=== PATIENT | male | born 1975 | race Caucasian/White ===

== ENCOUNTER 2019-09-20 01:43 | Emergency (ER) | payer SELFPAY ==
[~2019-09-20] VITALS: Ht 185.4 cm; Wt 90.7 kg
== END 2019-09-20 03:57 | disposition home or self-care (01) ==
LOC: ER 01:43
DX: S71.112A Laceration without foreign body, left thigh, initial encounter (principal); W26.8XXA Contact with other sharp object(s), not elsewhere classified, initial encounter; F17.200 Nicotine dependence, unspecified, uncomplicated

== ENCOUNTER 2019-11-23 07:10 | Emergency (ER) | payer OTHER ==
[~2019-11-23] VITALS: Ht 185.4 cm; Wt 90.7 kg
[2019-11-23] MEDS ORDERED: BACTRIM DS TAB1 EACH PO (07:24)
== END 2019-11-23 07:37 | disposition home or self-care (01) ==
LOC: ER 07:10
DX: L02.31 Cutaneous abscess of buttock (principal); L03.317 Cellulitis of buttock; F17.210 Nicotine dependence, cigarettes, uncomplicated
CPT/HCPCS: 99283; A9270-GY

== ENCOUNTER 2019-11-24 09:29 | Emergency (ER) | payer OTHER ==
[~2019-11-24] VITALS: Ht 185.4 cm; Wt 90.7 kg
[~2019-11-24 09:29] MED LIST: BACTRIM DS TAB1 EACH PO
== END 2019-11-24 11:20 | disposition home or self-care (01) ==
LOC: ER 09:29
DX: S29.012A Strain of muscle and tendon of back wall of thorax, initial encounter (principal); F17.200 Nicotine dependence, unspecified, uncomplicated; V59.9XXA Occupant (driver) (passenger) of pick-up truck or van injured in unspecified traffic accident, initial encounter
CPT/HCPCS: 72070; 99284-25; A9270

== ENCOUNTER 2019-12-23 16:12 | Emergency (ER) | payer OTHER ==
[~2019-12-23] VITALS: Ht 185.4 cm; Wt 90.7 kg
[2019-12-23 17:18] LABS: BASOPHILS ABSOLUTE AUTO 0.05 K/mm3 (0.00-0.23); BASOPHILS PERCENT AUTO 0 % (0-2); EOSINOPHILS ABSOLUTE AUTO 0.02 K/mm3 (0.00-0.68); EOSINOPHILS PERCENT AUTO 0 % (0-6); Hematocrit 43.4 % (37.0-53.0); Hemoglobin 13.8 g/dL (13.5-17.5); IMMATURE GRAN ABSOLUTE AUTO 0.04 K/mm3 (0.00-0.10); IMMATURE GRAN PERCENT AUTO 0 % (0-1); LYMPHOCYTES ABSOLUTE AUTO 3.85 K/mm3 (0.84-5.20); LYMPHOCYTES PERCENT AUTO 32 % (21-46); MONOCYTES PERCENT AUTO 9 % (4-13); Mean Corpuscular HGB 26.8 pg (26.0-34.0); Mean Corpuscular HGB Conc 31.8 g/dL (31.5-36.5); Mean Corpuscular Volume 84 fL (80-100); Mean Platelet Volume 10.3 fL (9.1-12.4); NEUTROPHILS ABSOLUTE AUTO 7.07 K/mm3 (1.96-9.15); NEUTROPHILS PERCENT AUTO 58 % (41-73); Platelet Count 444 K/mm3 (150-400); RDW Coefficient Variation 13.7 % (11.7-14.2); RDW Standard Deviation 42.9 fL (35.1-46.3); Red Blood Cell Count 5.14 M/mm3 (4.30-5.90); White Blood Cell Count 12.13 K/mm3 (4.00-11.30)
[2019-12-23 17:50] LABS: Alanine Aminotransfer (ALT/SGP 31 U/L (12-78); Albumin, Blood 3.6 g/dL (3.4-5.0); Albumin/Globulin Ratio 0.8 (0.8-1.8); Alk Phos 99 U/L (50-136); Anion Gap 8 mmol/L (6-16); Aspartate Aminotrans (AST/SGOT 20 U/L (12-37); Bilirubin, Total 0.2 mg/dL (0.1-1.0); Blood Urea Nitrogen 13 mg/dL (8-24); CO2, Blood 22 mmol/L (21-32); Calcium, Blood 9.2 mg/dL (8.5-10.1); Chloride, Blood 110 mmol/L (98-108); Creatinine, Blood 0.81 mg/dL (0.60-1.20); Globulin, Blood 4.3 g/dL (2.2-4.0); Glomerular Filtration Rate >60 (60-); Glucose, Blood 131 mg/dL (70-99); Potassium, Blood 3.4 mmol/L (3.5-5.5); Sodium, Blood 140 mmol/L (136-145); Total Protein, Blood 7.9 g/dL (6.4-8.2)
[2019-12-23] MEDS ORDERED: ONDA4ODT MM (19:01)
== END 2019-12-23 19:07 | disposition home or self-care (01) ==
LOC: ER 16:12
PROVIDERS: Physician Assistant
DX: K92.0 Hematemesis (principal); F17.210 Nicotine dependence, cigarettes, uncomplicated
CPT/HCPCS: 36415; 74022; 80053; 85025; 86850; 86900; 86901; 93005; 93010; 99284-25

== ENCOUNTER 2022-09-18 10:12 | Emergency (ER) | payer OTHER ==
[~2022-09-18] VITALS: Ht 185.4 cm; Wt 106.6 kg
[~2022-09-18 10:12] MED LIST changes: +ONDA4ODT MM
== END 2022-09-18 11:28 | disposition home or self-care (01) ==
LOC: ER 10:12
DX: M79.675 Pain in left toe(s) (principal); M79.672 Pain in left foot; F17.200 Nicotine dependence, unspecified, uncomplicated; W22.09XA Striking against other stationary object, initial encounter
CPT/HCPCS: 73610; 73630; 99283-25

== ENCOUNTER 2023-01-18 09:14 | Day surgery (SDC) | payer OTHER ==
[~2023-01-18] VITALS: Ht 185.4 cm; Wt 107.7 kg
[2023-01-18] MEDS ORDERED: OMEP20ER PO (10:26)
[2023-01-18] MEDS ORDERED: Cyclobenzaprine5 MG PO (10:27)
[2023-01-18 11:21] VITALS: BP 114/81
== END 2023-01-18 11:20 | disposition home or self-care (01) ==
LOC: ORSCSDS 09:14
PROVIDERS: Internal Medicine Gastroenterology
PROC: 0DBL8ZX Excision of Transverse Colon, Via Natural or Artificial Opening Endoscopic, Diagnostic (ICD-10-PCS; principal; 2023-01-18 11:15)
PROC: 0DB68ZX Excision of Stomach, Via Natural or Artificial Opening Endoscopic, Diagnostic (ICD-10-PCS; principal; 2023-01-18 11:15)
PROC: 0DB88ZX Excision of Small Intestine, Via Natural or Artificial Opening Endoscopic, Diagnostic (ICD-10-PCS; principal; 2023-01-18 11:15)
DX: K62.5 Hemorrhage of anus and rectum (principal); K21.9 Gastro-esophageal reflux disease without esophagitis; D12.3 Benign neoplasm of transverse colon; K52.9 Noninfective gastroenteritis and colitis, unspecified; K57.30 Diverticulosis of large intestine without perforation or abscess without bleeding; K64.8 Other hemorrhoids; L53.9 Erythematous condition, unspecified; Z87.11 Personal history of peptic ulcer disease; K44.9 Diaphragmatic hernia without obstruction or gangrene; J44.9 Chronic obstructive pulmonary disease, unspecified; Z79.899 Other long term (current) drug therapy
CPT/HCPCS: 88305; 88342; J2704; J7120